=== PATIENT | male | born 1990 ===

== ENCOUNTER 2017-06-24 16:55 | Emergency (ER) | payer OTHER ==
[2017-06-24 17:03] VITALS: BP 138/79; PULSE 60; RESP 16; TEMP 98.1; O2SAT 100
[2017-06-24] MEDS ORDERED: Naproxen 500 MG TAB PO STA (18:04)
[2017-06-24] MEDS ORDERED: Naproxen 500 MG TAB PO ONE (18:10)
--- NOTE | 2017-06-24 18:34 | ED PDOC ---
Upper Extremity Pain/Injury Time Seen by Provider: 06/24/17 17:11 Chief Complaint (Nursing): Upper Extremity Problem/Injury Chief Complaint (Provider): Upper Extremity Problem/Injury History Per: Patient History/Exam Limitations: no limitations Onset/Duration Of Symptoms: Days (x 1 week) Current Symptoms Are (Timing): Still Present Quality: "Pain" Additional Complaint(s): 27 year old male presents to the ED complaining of pain to PIP and DIP of the left and right 3rd and 4th fingers which started 1 week ago. Patient reports feeling stiffness and that pain worsens at night. Otherwise: (-) trauma, (-) injury, (-) fever, (-) joint pain, (-) numbness. PMD: none provided Past Medical History Reviewed: Historical Data, Nursing Documentation, Vital Signs Vital Signs: Last Vital Signs Temp 98.1 F 06/24/17 17:03 Pulse 60 06/24/17 17:03 Resp 16 06/24/17 17:03 BP 138/79 06/24/17 17:03 Pulse Ox 100 06/24/17 17:03 - Medical History PMH: No Chronic Diseases - Surgical History Surgical History: No Surg Hx - Family History Family History: States: Unknown Family Hx - Home Medications Home Medications: Ambulatory Orders Medication Instructions Recorded Naproxen 500 mg PO BID PRN #20 tablet 06/24/17 - Allergies Allergies/Adverse Reactions: Allergies Allergy/AdvReac Type Severity Reaction Status Date / Time No Known Allergies Allergy Verified 06/24/17 17:02 Review of Systems ROS Statement: Except As Marked, All Systems Reviewed And Found Negative Musculoskeletal: Positive for: Hand Pain (pain to PIP and DIP of left and right 3rd and 4th fingers) Physical Exam - Reviewed Nursing Documentation Reviewed: Yes Vital Signs Reviewed: Yes - Physical Exam Comments: GENERAL APPEARANCE: Patient is awake, alert, oriented x 3, in no acute distress. SKIN: Warm, dry; (-) cyanosis. EXTREMITY: b/l hands and wrist : (-) Tenderness, (-) swelling, (-) ecchymosis, ( +) FROM, (-) deformity, (-) distal neurovascular deficit. - ECG O2 Sat by Pulse Oximetry: 100 (RA) Pulse Ox Interpretation: Normal Medical Decision Making Medical Decision Making: Time: 17:03 Impression: hand pain, consider arthritis Initial Plan: --Naproxen 500 mg PO Advised to follow up with [facility] in 1-2 days without fail. Advised to take medication as prescribed. Return to the emergency room at any time for any new or worsening symptoms. Patient states he fully agrees with and understands discharge instructions. States that he agrees with the plan and disposition. Verbalized and repeated discharge instructions and plan. I have given the patient opportunity to ask any additional questions. ---- Scribe Attestation: Documented by Danelle Alcantara, acting as a scribe for Carolina Field PA-C Provider Scribe Attestation: All medical record entries made by the Scribe were at my direction and personally dictated by me. I have reviewed the chart and agree that the record accurately reflects my personal performance of the history, physical exam, medical decision making, and the department course for this patient. I have also personally directed, reviewed, and agree with the discharge instructions and disposition. Disposition - Clinical Impression Clinical Impression: Hand pain - Patient ED Disposition Is Patient to be Admitted: No Counseled Patient/Family Regarding: Diagnosis, Need For Followup, Rx Given - Disposition Referrals: [facility] [Outside] Disposition: Routine/Home Disposition Time: 17:15 Condition: STABLE Additional Instructions: Thank you for letting us take care of you today. You were treated for hand pain. The emergency medical care you received today was directed at your acute symptoms. If you were prescribed any medication, please fill it and take as directed. It may take several days for your symptoms to resolve. Return to the Emergency Department if your symptoms worsen, do not improve, or if you have any other problems. Please contact call one of the physicians/clinics you have been referred to that are listed on the Patient Visit Information form that is included in your discharge packet. Bring any paperwork you were given at discharge with you along with any medications you are taking to your follow up visit. Our treatment cannot replace ongoing medical care by a primary care provider (PCP) outside of the emergency department. Thank you for allowing the [facility] team to be part of your care today. Prescriptions: Naproxen 500 mg PO BID PRN #20 tablet PRN Reason: Pain, Moderate (4-7) Instructions: Hand Pain (DC), Joint Pain Forms: [employer] [facility] (Gibraltarian), [facility] ED School/Work Excuse Print Language: [place] - PA / TESTING SPECIALIST / Resident Statement MD/DO has reviewed & agrees with the documentation as recorded.
== END 2017-06-24 18:15 | disposition home or self-care (01) ==
LOC: H.ER 16:55
DX: M79.641 Pain in right hand (principal)

== ENCOUNTER 2018-01-08 13:45 | Emergency (ER) | payer OTHER ==
[2018-01-08] MEDS ORDERED: Sodium Chloride 0.9% 1,000 ML IV STA (14:40)
[2018-01-08 15:52] LABS: BASO % 0.4 % (0.0-2.0); EOS # 0.3 K/uL (0.0-0.7); EOS % 4.1 % (0.0-4.0); HEMOGLOBIN 14.6 g/dL (12.0-18.0); LYMPH % 24.9 % (20.0-40.0); MEAN CELL VOLUME 90.9 fl (80.0-94.0); MEAN CORPUSCULAR HEMOGLOBIN 31.2 pg (27.0-31.0); MEAN CORPUSCULAR HGB CONC 34.4 g/dL (33.0-37.0); MEAN PLATELET VOLUME 8.4 fl (7.2-11.7); MONO # 0.6 K/uL (0.0-0.8); MONO % 7.8 % (0.0-10.0); NEUT # 5.1 K/uL (1.8-7.0); NEUT % 62.8 % (50.0-75.0); RBC 4.69 Mil/uL (4.40-5.90); WHITE BLOOD COUNT 8.1 K/uL (4.8-10.8)
[2018-01-08 15:59] LABS: ALB/GLOB RATIO 1.4 (1.0-2.1); ALBUMIN 4.2 g/dL (3.5-5.0); ALT/SGPT 64 U/L (21-72); AST/SGOT 47 U/L (17-59); BLOOD UREA NITROGEN 11 mg/dl (9-20); CALCIUM 9.4 mg/dL (8.4-10.2); GFR NON-AFRICAN AMERICAN > 60; LIPASE 32 U/L (23-300)
[2018-01-08 16:02] LABS: INR 1.1; PROTHROMBIN TIME 12.2 Seconds (9.8-13.1)
[2018-01-08 16:04] LABS: PARTIAL THROMBOPLASTIN TIME 31.8 Seconds (25.6-37.1)
--- NOTE | 2018-01-08 16:17 | US ---
Date of service: 01/08/2018 HISTORY: Epigastric pain COMPARISON: None. TECHNIQUE: Sonographic evaluation of the right upper quadrant of the abdomen. FINDINGS: LIVER: Measures 16.2 cm in length. Normal echogenicity of the liver parenchyma. No mass. No intrahepatic bile duct dilatation. GALLBLADDER: Intermediate thickness the gallbladder wall is appreciate without cholelithiasis or pericholecystic fluid collection. There is no reported sonographic Chew sign either. COMMON BILE DUCT: Measures 1.0 mm. No stones. No dilatation. PANCREAS: Unremarkable as visualized. No mass. No ductal dilatation. RIGHT KIDNEY: Measures 9.5 cm in length. Normal echogenicity. No calculus, mass, or hydronephrosis. AORTA: No aneurysmal dilatation. IVC: Unremarkable. OTHER FINDINGS: None . IMPRESSION: Intermediate thickness of the gallbladder without reaching the criteria of significant edema. Gallbladder otherwise unremarkable. No sonographic Chew sign reported. Normal biliary tree caliber overall.
--- NOTE | 2018-01-08 17:02 | ED PDOC ---
HPI: Abdomen Time Seen by Provider: 01/08/18 14:14 Chief Complaint (Nursing): GI Problem Chief Complaint (Provider): GI Problem History Per: Patient History/Exam Limitations: no limitations Onset/Duration Of Symptoms: Days (x3) Current Symptoms Are (Timing): Still Present Quality Of Discomfort: "Pain" Associated Symptoms: denies: Fever, Diarrhea Additional Complaint(s): 27 year old male with no significant past medical history presents to the ED with nonbloody vomiting onset 3 days associated mild abdominal pain. Patient denies fever, diarrhea or any other medical complaints. PMD: none provided Past Medical History Reviewed: Historical Data, Nursing Documentation, Vital Signs Vital Signs: Last Vital Signs Temp 98.4 F 01/08/18 13:49 Pulse 52 L 01/08/18 13:49 Resp 18 01/08/18 13:49 BP 140/70 01/08/18 13:49 Pulse Ox 100 01/08/18 13:49 - Medical History PMH: No Chronic Diseases - Surgical History Surgical History: No Surg Hx - Family History Family History: States: Unknown Family Hx - Home Medications Home Medications: Ambulatory Orders Medication Instructions Recorded Naproxen 500 mg PO BID PRN #20 tablet 06/24/17 Famotidine [Pepcid] 20 mg PO BID #20 tab 01/08/18 Ondansetron [Zofran Odt] 4 mg PO Q8H PRN #15 odt 01/08/18 - Allergies Allergies/Adverse Reactions: Allergies Allergy/AdvReac Type Severity Reaction Status Date / Time No Known Allergies Allergy Verified 06/24/17 17:02 Review of Systems ROS Statement: Except As Marked, All Systems Reviewed And Found Negative Constitutional: Negative for: Fever Gastrointestinal: Positive for: Vomiting, Abdominal Pain. Negative for: Diarrhea Physical Exam - Reviewed Nursing Documentation Reviewed: Yes Vital Signs Reviewed: Yes - Physical Exam Appears: Positive for: No Acute Distress ENT: Positive for: Other (mucous membranes dry) Cardiovascular/Chest: Positive for: Regular Rate, Rhythm. Negative for: Murmur Respiratory: Positive for: Normal Breath Sounds. Negative for: Respiratory Distress Gastrointestinal/Abdominal: Positive for: Tenderness (mild epigastric). Negative for: Guarding, Rebound Extremity: Positive for: Normal ROM (upper and lower). Negative for: Pedal Edema, Deformity Neurologic/Psych: Positive for: Alert, Oriented (x3) - Laboratory Results Result Diagrams: 01/08/18 14:54 01/08/18 14:54 - ECG O2 Sat by Pulse Oximetry: 100 (RA) Pulse Ox Interpretation: Normal Medical Decision Making Medical Decision Making: Time: 1439 Initial Impression: Vomiting, gastritis Initial Plan: --CMP --Lipase --Urine dip -CBC with differentials --PTT --PT --NS --Pepcid 20 mg IVP --Zofran 4 mg IV --Abdomen lower US Time: 1615 US abdomen: FINDINGS: LIVER: Measures 16.2 cm in length. Normal echogenicity of the liver parenchyma. No mass. No intrahepatic bile duct dilatation. GALLBLADDER: Intermediate thickness the gallbladder wall is appreciate without cholelithiasis or pericholecystic fluid collection. There is no reported sonographic Chew sign either. COMMON BILE DUCT: Measures 1.0 mm. No stones. No dilatation. PANCREAS: Unremarkable as visualized. No mass. No ductal dilatation. RIGHT KIDNEY: Measures 9.5 cm in length. Normal echogenicity. No calculus, mass, or hydronephrosis. AORTA: No aneurysmal dilatation. IVC: Unremarkable. OTHER FINDINGS: None . IMPRESSION: Intermediate thickness of the gallbladder without reaching the criteria of significant edema. Gallbladder otherwise unremarkable. No sonographic Chew sign reported. Normal biliary tree caliber overall. Scribe Attestation: Documented by Adri Martinez, acting as a scribe for Alyssa Serrano MD Provider Scribe Attestation: All medical record entries made by the Scribe were at my direction and personally dictated by me. I have reviewed the chart and agree that the record accurately reflects my personal performance of the history, physical exam, medical decision making, and the department course for this patient. I have also personally directed, reviewed, and agree with the discharge instructions and disposition. Disposition - Clinical Impression Clinical Impression: Gastritis - Disposition Referrals: [facility] [Outside] Prescriptions: Famotidine [Pepcid] 20 mg PO BID #20 tab Ondansetron [Zofran Odt] 4 mg PO Q8H PRN #15 odt PRN Reason: Nausea/Vomiting Instructions: Gastritis Forms: [facility] (Bengali), [facility] (Martiniquais) Print Language: [place]
[2018-01-08 17:18] VITALS: BP 119/69; PULSE 59; RESP 16; TEMP 98.1; O2SAT 97
[2018-01-08 17:31] LABS: SQUAMOUS EPITHIAL < 1 /hpf (0-5); URINE BILIRUBIN NEGATIVE (NEGATIVE); URINE BLOOD NEGATIVE (NEGATIVE); URINE CLARITY CLEAR (Clear); URINE COLOR YELLOW (YELLOW); URINE GLUCOSE (UA) NEG (Normal); URINE LEUKOCYTE ESTERASE NEG Leu/uL (Negative); URINE PROTEIN NEGATIVE (NEGATIVE); URINE UROBILINOGEN 0.2-1.0 mg/dL (0.2-1.0)
== END 2018-01-08 17:16 | disposition home or self-care (01) ==
LOC: H.ER 13:45
DX: K29.70 Gastritis, unspecified, without bleeding (principal)
CPT/HCPCS: 76705; 80053; 81003; 83690; 85025; 85610; 85730; 96361; 96374; 96375; 99284; J2405; J7030